=== PATIENT | female | born 1950 | race Caucasian/White ===

== ENCOUNTER → 2018-04-02 | Outpatient (CLI) | payer MEDICARE ==
--- NOTE | 2018-04-03 22:45 | SLEEP ---
[place] [address] SLEEP STUDY REPORT Name: SHAQUILLE DIAZ Room: [facility]#: [id number] Admission: 04/02/18 Attend Phys: Robby Navas MD Discharge: Date of : 46 Report #: [id number] THIS REPORT FOR: //name// CC: Robby Navas MD This study has been reviewed in its entirety by a board certified sleep specialist DATE OF SERVICE: 04/02/2018 ATTENDING PHYSICIAN: Robby Navas MD The patient is a 67-year-old who weighs 206 pounds and 67 inches tall with a BMI of 32.3. The patient's Luxor score was 4. The patient underwent diagnostic sleep study at [facility] to rule out TRACE. During the night study, the patient spent 410 minutes in bed and slept for 240 minutes with a sleep efficiency of 58%, which was low. Sleep latency was prolonged at 105 minutes with REM latency 118 minutes. Overall, sleep architecture showed normal stage I sleep, reduced stage II sleep, increased slow wave and increased REM sleep. During the night study, the patient had 2 apneas, which were obstructive, and 76 hypopneas. The patient's apnea hypopnea index was 19.5 per hour with a REM index of 21.2 per hour and a supine index of 22 per hour. EKG monitoring revealed an average heart rate of 68 beats per minute with a maximum of 83 beats per minute. No sustained arrhythmias were observed. Occasional PVC's seen. PLMS are seen an index of 72 per hour and 12 per hour caused EEG arousals. Nocturnal oximetry study revealed an average oxygen saturation of 95% with the lowest of 78%. 70 minutes were spent at oxygen saturation less than 89%. The patient did met the criteria for CPAP, but it was late in the night of the study, as a result CPAP was not initiated. IMPRESSION: 1. Moderate sleep apnea-hypopnea syndrome at an AHI of 19.5 per hour. 2. Reduced sleep efficiency of 58%, resulting from sleep onset and sleep maintenance insomnia. 3. Severe PLMS at an index of 72 per hour and 12 per hour caused EEG arousals. 4. Mild nocturnal hypoxia secondary [place] [address] SLEEP STUDY REPORT Name: SHAQUILLE DIAZ Room: [facility]#: [id number] Admission: 04/02/18 Attend Phys: Robby Navas MD Discharge: Date of : 46 Report #: [id number] RECOMMENDATIONS: 1. The patient would benefit from return to the sleep lab for CPAP titration study. 2. Once optimal CPAP pressures achieved, then follow in 4-6 weeks to assess compliance with CPAP and to document clinical improvement. 3. Weight loss is strongly advised. 4. Avoid [employer] depressants. 5. Cautioned regarding driving until symptoms of sleep apnea resolve with the use of CPAP. 6. The patient's insomnia should be further evaluated if it persists despite effective use of CPAP. 7. The patient should also be evaluated for symptoms of restless legs during the day. <ELECTRONICALLY SIGNED> By: Santana Sky MD 04/03/18 [id number] Sky MD /nt
== END ==
LOC: M.SLEEPLAB 20:29
DX: G47.33 Obstructive sleep apnea (adult) (pediatric) (principal); J02.9 Acute pharyngitis, unspecified; J06.9 Acute upper respiratory infection, unspecified; R09.02 Hypoxemia; Z68.32 Body mass index [BMI] 32.0-32.9, adult

== ENCOUNTER → 2019-11-25 | Outpatient (CLI) | payer MEDICARE | LOC: M.RAD 09:55 | PROVIDERS: ATTEND Internal Medicine | DX: Z78.0 Asymptomatic menopausal state (principal); G47.33 Obstructive sleep apnea (adult) (pediatric); I10 Essential (primary) hypertension ==